=== PATIENT | male | born 1985 | race African-American/Black ===

== ENCOUNTER 2018-03-04 07:30 | Emergency (ER) | payer SELFPAY ==
[~2018-03-04] VITALS: Ht 177.8 cm; Wt 70.0 kg
[2018-03-04] MEDS ORDERED: ONDANSETRON HCL 4MG/2ML VIAL IV STA (07:50)
[2018-03-04] MEDS ORDERED: FOLIC ACID 1 MG, THIAMINE HCL 100 MG, MVI, ADULT NO.1 10 ML in DEXTROSE 5% WATER 1,000 ML IV ONE ×4 (08:00)
[2018-03-04] MEDS ORDERED: LORAZEPAM 2MG/ML CPJ IV ONE (08:00)
[2018-03-04] MEDS ORDERED: THIAMINE HCL 100 MG/1 ML 2ML VIAL ONE (08:14)
[2018-03-04 09:17] LABS: HEMATOCRIT. 42.1 % (42.0-52.0); HEMOGLOBIN. 14.4 g/dL (14.0-18.0); MEAN CORPUSCULAR HEMOGLOBIN 31.2 pg (28.0-32.0); MEAN CORPUSCULAR VOLUME 91.6 fL (80.0-94.0); PLATELET 297 x1000/uL (130-400); RED CELL DISTRIBUTION WIDTH 13.6 % (11.6-14.6)
[2018-03-04 09:19] LABS: CHLORIDE 90 mEq/L (98-107)
[2018-03-04 09:21] LABS: ETHANOL BLOOD < 10 mg/dL
[2018-03-04 09:57] LABS: PLATELET ESTIMATE NORMAL
[2018-03-04] MEDS ORDERED: CHLORDIAZEPOXIDE 25MG CAPSULE PO ONE (10:15)
[2018-03-04 10:56] VITALS: BP 128/63
== END 2018-03-04 11:31 | disposition home or self-care (01) ==
LOC: EDBD 07:30 → ER 10:19
DX: F10.239 Alcohol dependence with withdrawal, unspecified (principal); R25.1 Tremor, unspecified; R00.0 Tachycardia, unspecified; R11.0 Nausea; F41.9 Anxiety disorder, unspecified; F12.10 Cannabis abuse, uncomplicated; Y90.0 Blood alcohol level of less than 20 mg/100 ml
CPT/HCPCS: 36415; 80048; 85025; 96365; 96366; 96375; 99285; G0482; J2060; J2405; J3411; J3490; J7070

== ENCOUNTER 2018-11-13 15:13 | Emergency (ER) | payer OTHER ==
[~2018-11-13] VITALS: Ht 175.3 cm; Wt 80.0 kg
[2018-11-13 16:28] LABS: BASOPHILS % 0.5 % (0.0-2.0); EOSINOPHILS % 0.4 % (0.0-5.0); HEMATOCRIT. 40.5 % (42.0-52.0); LYMPHOCYTES % 16.5 % (20.0-50.0); MEAN CORPUSCULAR HEMOGLOBIN 31.9 pg (28.0-32.0); MEAN CORPUSCULAR VOLUME 92.2 fL (80.0-94.0); NEUTROPHILS % 73.6 % (40.0-76.0); RED BLOOD CELL COUNT 4.39 mill/uL (4.7-6.1); RED CELL DISTRIBUTION WIDTH 13.5 % (11.6-14.6)
[2018-11-13 16:40] LABS: CHLORIDE 89 mEq/L (98-107)
[2018-11-13] MEDS ORDERED: CHLORDIAZEPOXIDE 25MG CAPSULE PO ONE (17:00)
[2018-11-13] MEDS ORDERED: SODIUM CHLORIDE 0.9% 1,000 ML IV ONE (17:00)
[2018-11-13] MEDS ORDERED: POTASSIUM CHLORIDE 20MEQ TABLET SR PO ONE (18:30)
[2018-11-13 18:45] VITALS: BP 135/82
== END 2018-11-13 19:22 | disposition home or self-care (01) ==
LOC: ER 15:13
DX: G40.909 Epilepsy, unspecified, not intractable, without status epilepticus (principal); S00.83XA Contusion of other part of head, initial encounter; E87.6 Hypokalemia; W17.89XA Other fall from one level to another, initial encounter; Y93.89 Activity, other specified; Y92.488 Other paved roadways as the place of occurrence of the external cause
CPT/HCPCS: 36415; 70450; 80053; 85025; 96360; 99284; J7030

== ENCOUNTER 2019-02-18 16:19 | Emergency (ER) | payer OTHER ==
[~2019-02-18] VITALS: Ht 172.7 cm; Wt 60.0 kg
[2019-02-18] MEDS ORDERED: SODIUM CHLORIDE 0.9% 1,000 ML IV ONE (23:58)
[2019-02-18] MEDS ORDERED: ONDANSETRON HCL 4MG/2ML INJ IV STA (23:58)
[2019-02-19] MEDS ORDERED: LORAZEPAM 2MG/ML CPJ IV ONE
[2019-02-19 00:46] LABS: CHLORIDE 91 mEq/L (98-107)
[2019-02-19 00:48] LABS: BASOPHILS % 0.3 % (0.0-2.0); HEMATOCRIT. 39.3 % (42.0-52.0); HEMOGLOBIN. 13.4 g/dL (14.0-18.0); LYMPHOCYTES % 11.1 % (20.0-50.0); MEAN CORPUSCULAR HEMOGLOBIN 31.4 pg (28.0-32.0); MEAN CORPUSCULAR VOLUME 92.4 fL (80.0-94.0); MEAN PLATELET VOLUME 7.7 fl (7.4-10.4); MONOCYTES % 7.8 % (2.0-8.0); NEUTROPHILS % 80.8 % (40.0-76.0); PLATELET 250 x1000/uL (130-400); RED BLOOD CELL COUNT 4.26 mill/uL (4.7-6.1); RED CELL DISTRIBUTION WIDTH 14.7 % (11.6-14.6)
[2019-02-19 02:00] VITALS: BP 126/83
[2019-02-19 02:02] LABS: CLARITY URINE CLEAR (CLEAR); COLOR URINE ORANGE (YELLOW); KETONES URINE 4+ (NEGATIVE); LEUKOCYTE ESTERASE URINE NEGATIVE (NEGATIVE); NITRITE URINE NEGATIVE (NEGATIVE); OCCULT BLOOD URINE NEGATIVE (NEGATIVE); PH URINE 5.5 (4.5-8.0); PROTEIN URINE 1+ (NEGATIVE); SPECIFIC GRAVITY URINE 1.024 (1.005-1.030)
== END 2019-02-19 02:38 | disposition home or self-care (01) ==
LOC: ER 16:19
DX: R11.2 Nausea with vomiting, unspecified (principal); G40.909 Epilepsy, unspecified, not intractable, without status epilepticus; F17.210 Nicotine dependence, cigarettes, uncomplicated
CPT/HCPCS: 36415; 80053; 81003; 83690; 85025; 96361; 96374; 96375; 99283; J2060; J2405; J7030

== ENCOUNTER 2019-03-03 23:49 | Emergency (ER) | payer OTHER ==
[~2019-03-03] VITALS: Ht 170.2 cm; Wt 71.0 kg
[2019-03-04] MEDS ORDERED: SODIUM CHLORIDE 0.9% 1,000 ML IV ONE (02:13)
[2019-03-04 02:25] LABS: BASOPHILS % 0.7 % (0.0-2.0); HEMATOCRIT. 39.1 % (42.0-52.0); HEMOGLOBIN. 13.3 g/dL (14.0-18.0); LYMPHOCYTES % 9.5 % (20.0-50.0); MEAN CORPUSCULAR HEMOGLOBIN 31.4 pg (28.0-32.0); MEAN CORPUSCULAR VOLUME 92.4 fL (80.0-94.0); MEAN PLATELET VOLUME 7.6 fl (7.4-10.4); MONOCYTES % 4.8 % (2.0-8.0); PLATELET 299 x1000/uL (130-400); RED BLOOD CELL COUNT 4.23 mill/uL (4.7-6.1); RED CELL DISTRIBUTION WIDTH 14.8 % (11.6-14.6)
[2019-03-04 02:33] LABS: CHLORIDE 102 mEq/L (98-107)
[2019-03-04 02:50] LABS: ETHANOL BLOOD 312 mg/dL
[2019-03-04] MEDS ORDERED: ONDANSETRON HCL 4MG/2ML INJ IV ONE ×2 (03:15→10:45)
[2019-03-04] MEDS ORDERED: MORPHINE SULFATE 2 MG/ML CPJ (NOT FOR IM USE) IV ONE (03:15)
[2019-03-04] MEDS ORDERED: CLINDAMYCIN 600 MG in DEXTROSE 5% WATER 50 ML IV ONE (06:30)
[2019-03-04] MEDS ORDERED: KETOROLAC 30MG/ML VIAL IV ONE (06:45)
[2019-03-04] MEDS ORDERED: CLINDAMYCIN 600MG PREMIX 50 ML IV NR (06:45)
[2019-03-04] MEDS ORDERED: IOHEXOL-300 100 ML BOTTLE ONE (07:20)
[2019-03-04] MEDS ORDERED: MORPHINE SULFATE 4 MG/ML CPJ (NOT FOR IM USE) IV ONE (08:15)
[2019-03-04 10:19] VITALS: BP 134/83
[2019-03-04] MEDS ORDERED: ONDANSETRON 4MG ODT PO ONE (10:45)
== END 2019-03-04 10:48 | disposition short-term general hospital (02) ==
LOC: ER 23:49
DX: S02.609A Fracture of mandible, unspecified, initial encounter for closed fracture (principal); F10.129 Alcohol abuse with intoxication, unspecified; Y90.7 Blood alcohol level of 200-239 mg/100 ml; R56.9 Unspecified convulsions; F17.200 Nicotine dependence, unspecified, uncomplicated; W01.0XXA Fall on same level from slipping, tripping and stumbling without subsequent striking against object, initial encounter; Y93.89 Activity, other specified; Y92.9 Unspecified place or not applicable
CPT/HCPCS: 36415; 70450; 70487; 80053; 80320; 83605; 85025; 87040; 96365; 96375; 96376; 99285; J1885; J2270; J2405; J3490; J7030; J7060; Q0162; Q9967; G0480